=== PATIENT | male | born 1945 | race Caucasian/White ===

== ENCOUNTER 2023-04-22 11:52 | Inpatient (IN) | payer MEDICARE ==
[~2023-04-22] VITALS: Ht 170.2 cm; Wt 74.5 kg
[2023-04-22 12:06] VITALS: BP 157/87
[2023-04-22] MEDS ORDERED: Glimepiride1 MG PO (12:08)
[2023-04-22] MEDS ORDERED: JARDIANCE25 MG PO (12:09)
[2023-04-22] MEDS ORDERED: AVALIDE 150-121 EACH PO (12:11)
[2023-04-22 13:27] LABS: BASO % 0.7 % (0.0-1.0); HEMATOCRIT 48.3 % (42.0-52.0); LYMPH # 0.4 10*3/uL (1.3-4.4); LYMPH % 6.9 % (27.0-41.0); MEAN CELL VOLUME 88.8 fl (80.0-94.0); MEAN CORPUSCULAR HGB 30.3 pg (27.0-31.0); MEAN CORPUSCULAR HGB CONC 34.2 g/dl (33.0-37.0); MEAN PLATELET VOLUME 8.8 fl (9.6-12.3); MONO # 0.3 10*3/uL (0.1-1.0); MONO % 5.7 % (3.0-9.0); NEUT # 4.9 10*3/uL (2.3-7.9); NEUT % 86.3 % (47.0-73.0); PLATELET COUNT AUTOMATED 198 10*3/uL (130-400); RED BLOOD COUNT 5.44 10*6/uL (4.50-5.90); RED CELL DISTRI WIDTH 13.8 % (0-14.5); WHITE BLOOD COUNT 5.7 10*3/uL (4.8-10.8)
[2023-04-22 13:39] LABS: ACT PARTIAL THROMBO TIME 25.3 SECONDS (20.0-32.1); INTERNATIONAL NORM RATIO 1.2 (2.0-3.5)
[2023-04-22 13:50] LABS: ALKALINE PHOSPHATASE 86 U/L (46-116); BUN 12 mg/dl (9-23); CHLORIDE 103 mmol/L (98-107); LIPASE 41 U/L (12-53); POTASSIUM 3.6 mmol/L (3.4-5.1); SGPT/ALT 44 U/L (10-49)
[2023-04-22 14:46] LABS: BILIRUBIN Negative (Negative); BLOOD Negative (Negative); CLARITY Clear (Clear); COLOR Yellow (Yellow); GLUCOSE 3+ (Negative); KETONE Trace (Negative); LEUKO ESTERASE Negative (Negative); NITRITE Negative (Negative); PH 6.5 (4.5-8.0); SPECIFIC GRAVITY >= 1.030 (1.001-1.030)
[2023-04-22 15:05] LABS: BACTERIA 1+; WBC 0-2 wbc/hpf (0-5)
[2023-04-22 19:09] VITALS: BP 100/48
[2023-04-22 20:09] VITALS: BP 94/54
[2023-04-22 20:50] VITALS: BP 100/52
[2023-04-23] VITALS: BP 104/52
[2023-04-23 06:11] LABS: BASO % 0.7 % (0.0-1.0); HEMATOCRIT 44.7 % (42.0-52.0); LYMPH # 0.5 10*3/uL (1.3-4.4); LYMPH % 10.2 % (27.0-41.0); MEAN CELL VOLUME 90.5 fl (80.0-94.0); MEAN CORPUSCULAR HGB 30.4 pg (27.0-31.0); MEAN CORPUSCULAR HGB CONC 33.6 g/dl (33.0-37.0); MEAN PLATELET VOLUME 9.3 fl (9.6-12.3); MONO # 0.3 10*3/uL (0.1-1.0); MONO % 6.7 % (3.0-9.0); NEUT # 3.8 10*3/uL (2.3-7.9); NEUT % 82.2 % (47.0-73.0); PLATELET COUNT AUTOMATED 143 10*3/uL (130-400); RED BLOOD COUNT 4.94 10*6/uL (4.50-5.90); RED CELL DISTRI WIDTH 13.9 % (0-14.5); WHITE BLOOD COUNT 4.6 10*3/uL (4.8-10.8)
[2023-04-23 06:17] LABS: ALKALINE PHOSPHATASE 66 U/L (46-116); BUN 11 mg/dl (9-23); CHLORIDE 105 mmol/L (98-107); CHOLESTEROL 128 mg/dL (<200); FREE T4 0.85 ng/dl (0.89-1.76); LDL CHOLESTEROL 85 mg/dL (9-159); POTASSIUM 3.4 mmol/L (3.4-5.1); SGPT/ALT 38 U/L (10-49); TOTAL PROTEIN 6.6 gm/dL (6.0-8.0); TRIGLYCERIDES 97 mg/dl (<150)
[2023-04-23 06:34] LABS: VITAMIN D, 25-HYDROXY 27.3 ng/mL (30-100)
[2023-04-23 08:00] VITALS: BP 123/58
[2023-04-23] MEDS ORDERED: AVODART0.5 M1 PO (08:26)
[2023-04-23] MEDS ORDERED: FLOMAX0.4 MG PO (08:26)
[2023-04-23 12:00] VITALS: BP 101/57
[2023-04-23 16:00] VITALS: BP 118/58
[2023-04-23 20:00] VITALS: BP 98/53
[2023-04-24] VITALS: BP 121/63
[2023-04-24 07:23] LABS: BASO % 0.3 % (0.0-1.0); HEMATOCRIT 42.7 % (42.0-52.0); LYMPH # 0.5 10*3/uL (1.3-4.4); LYMPH % 13.7 % (27.0-41.0); MEAN CELL VOLUME 88.2 fl (80.0-94.0); MEAN CORPUSCULAR HGB 30.8 pg (27.0-31.0); MEAN CORPUSCULAR HGB CONC 34.9 g/dl (33.0-37.0); MEAN PLATELET VOLUME 9.9 fl (9.6-12.3); MONO # 0.3 10*3/uL (0.1-1.0); MONO % 8.5 % (3.0-9.0); NEUT # 2.5 10*3/uL (2.3-7.9); NEUT % 77.2 % (47.0-73.0); NUCLEATED RED BLOOD CELL 0.6 % (0.0-0.0); RED BLOOD COUNT 4.84 10*6/uL (4.50-5.90); RED CELL DISTRI WIDTH 13.9 % (0-14.5); WHITE BLOOD COUNT 3.3 10*3/uL (4.8-10.8)
[2023-04-24 07:28] LABS: PLATELET COUNT AUTOMATED 104 10*3/uL (130-400)
[2023-04-24 07:35] LABS: BUN 15 mg/dl (9-23); CHLORIDE 103 mmol/L (98-107); POTASSIUM 3.8 mmol/L (3.4-5.1)
[2023-04-24 08:00] VITALS: BP 124/65
[2023-04-24 12:00] VITALS: BP 125/99
[2023-04-24 16:00] VITALS: BP 133/62; BP 144/67
[2023-04-24 19:35] LABS: BILIRUBIN Negative (Negative); BLOOD Trace-Lysed (Negative); CLARITY Clear (Clear); COLOR Yellow (Yellow); GLUCOSE 3+ (Negative); KETONE Trace (Negative); LEUKO ESTERASE Negative (Negative); NITRITE Negative (Negative); PH 5.5 (4.5-8.0); SPECIFIC GRAVITY >= 1.030 (1.001-1.030)
[2023-04-24 19:43] LABS: MUCOUS 1+
[2023-04-24 20:00] VITALS: BP 110/62
[2023-04-25] VITALS: BP 122/67
[2023-04-25 06:41] LABS: BUN 14 mg/dl (9-23); CHLORIDE 104 mmol/L (98-107); POTASSIUM 3.6 mmol/L (3.4-5.1)
[2023-04-25 06:44] LABS: HEMATOCRIT 42.8 % (42.0-52.0); MEAN CELL VOLUME 88.1 fl (80.0-94.0); MEAN CORPUSCULAR HGB 29.4 pg (27.0-31.0); MEAN CORPUSCULAR HGB CONC 33.4 g/dl (33.0-37.0); MEAN PLATELET VOLUME 11.1 fl (9.6-12.3); PLATELET COUNT AUTOMATED 79 10*3/uL (130-400); RED BLOOD COUNT 4.86 10*6/uL (4.50-5.90); WHITE BLOOD COUNT 2.5 10*3/uL (4.8-10.8)
[2023-04-25 06:50] LABS: MANUAL DIFF REFLEX YES
[2023-04-25 07:49] LABS: PLATELET SUFFICIENCY LOW (NORMAL); TOTAL CELLS COUNTED 100 #CELLS
[2023-04-25 08:00] VITALS: BP 116/60
[2023-04-25 12:00] VITALS: BP 124/69
[2023-04-25 16:00] VITALS: BP 125/69
[2023-04-25 20:00] VITALS: BP 133/68
[2023-04-26] VITALS: BP 129/72
[2023-04-26 06:33] LABS: HEMATOCRIT 41.3 % (42.0-52.0); MEAN CELL VOLUME 87.3 fl (80.0-94.0); MEAN CORPUSCULAR HGB 29.6 pg (27.0-31.0); MEAN CORPUSCULAR HGB CONC 33.9 g/dl (33.0-37.0); MEAN PLATELET VOLUME 10.7 fl (9.6-12.3); PLATELET COUNT AUTOMATED 80 10*3/uL (130-400); RED BLOOD COUNT 4.73 10*6/uL (4.50-5.90); WHITE BLOOD COUNT 4.3 10*3/uL (4.8-10.8)
[2023-04-26 06:34] LABS: MANUAL DIFF REFLEX YES
[2023-04-26 06:57] LABS: BUN 13 mg/dl (9-23); CHLORIDE 104 mmol/L (98-107); POTASSIUM 3.6 mmol/L (3.4-5.1)
[2023-04-26 07:03] LABS: ATYPICAL LYMPHS 2 % (0-0); PLATELET SUFFICIENCY LOW (NORMAL); TOTAL CELLS COUNTED 100 #CELLS
[2023-04-26 08:00] VITALS: BP 124/66
[2023-04-26] MEDS ORDERED: AVAPRO150 M1 PO ×2 (11:15→11:36)
== END 2023-04-26 12:01 | disposition home or self-care (01) | DRG 923 ==
LOC: ED 11:52 → 5E 18:07 → EDHOLD 18:07 → 5E 19:37 → 4E 04-25 18:20
PROVIDERS: Emergency Medicine; Internal Medicine; ADMIT Internal Medicine; ATTEND Internal Medicine
DX: T67.5XXA Heat exhaustion, unspecified, initial encounter (principal); E87.1 Hypo-osmolality and hyponatremia; R65.10 Systemic inflammatory response syndrome (SIRS) of non-infectious origin without acute organ dysfunction; E87.20 Acidosis, unspecified; Z66 Do not resuscitate; E04.1 Nontoxic single thyroid nodule; M47.812 Spondylosis without myelopathy or radiculopathy, cervical region; W18.39XA Other fall on same level, initial encounter; Z51.5 Encounter for palliative care; R27.0 Ataxia, unspecified; R50.81 Fever presenting with conditions classified elsewhere; N40.0 Benign prostatic hyperplasia without lower urinary tract symptoms; E11.65 Type 2 diabetes mellitus with hyperglycemia; I10 Essential (primary) hypertension; G25.69 Other tics of organic origin; F17.210 Nicotine dependence, cigarettes, uncomplicated; Z71.6 Tobacco abuse counseling; Y93.9 Activity, unspecified; Y92.89 Other specified places as the place of occurrence of the external cause; Y99.8 Other external cause status; Z79.899 Other long term (current) drug therapy